=== PATIENT | female | born 2000 | race Two or more races ===

== ENCOUNTER 2021-04-23 05:55 | Emergency (ER) | payer SELFPAY ==
[~2021-04-23] VITALS: Ht 160 cm; Wt 52.2 kg
[2021-04-23 06:06] VITALS: BP 121/73
== END 2021-04-23 08:54 | disposition left against medical advice (07) ==
LOC: ER 05:55 → EDBD 05:55 → ER 08:54
DX: S01.81XA Laceration without foreign body of other part of head, initial encounter (principal); Z53.21 Procedure and treatment not carried out due to patient leaving prior to being seen by health care provider; V49.49XA Driver injured in collision with other motor vehicles in traffic accident, initial encounter; Y93.89 Activity, other specified; Y92.488 Other paved roadways as the place of occurrence of the external cause; Y99.8 Other external cause status